=== PATIENT | female | born 1960 | race African-American/Black ===

== ENCOUNTER 2019-06-20 15:08 | Inpatient (IN) | payer BC ==
[~2019-06-20] VITALS: Ht 170.2 cm; Wt 56.0 kg
--- NOTE | 2019-06-20 15:55 | NUR ---
PHYSICIAN CODING SPECIALIST: PT ARRIVED VIA EMS. [facility]
[2019-06-20] MEDS ORDERED: ATOR40TA78 PO (16:09)
[2019-06-20] MEDS ORDERED: LEVE500T8 PO (16:09)
[2019-06-20] MEDS ORDERED: LISI-167 PO (16:09)
--- NOTE | 2019-06-20 16:14 | NUR ---
PT AMBULATORY TO & FROM [facility]/ SLOW GAIT. VOIDED SPECIMEN PROVIDED. Addendum: 06/20/19 at 1625 by GRIFFIN URINE SPECIMEN PALE YELLOW, CLOUDY. WILL NOTIFY ERP.
--- NOTE | 2019-06-20 16:22 | NUR ---
PT DENIED SEIZURE AND CVA HX. REPORTS BRAIN BLEED - WAS TX'D AT [facility]. DR RAPP WILL REQUEST RECORDS.
[2019-06-20] MEDS ORDERED: LORazepam 2 MG/ML, 1ML ONE (16:23)
--- NOTE | 2019-06-20 16:26 | NUR ---
O2 SAT UPPER 70'S, LOW 80'S. O2 2LNC APPLIED; TITRATED UP TO 4LNC
[2019-06-20] MEDS ORDERED: LORazepam 2 MG/ML, 1ML IVPush ONE (16:30)
--- NOTE | 2019-06-20 16:31 | NUR ---
MEDS ADMIN PER SEP. PT RESTING COMFORTABLY ON GURNEY READING ON PHONE. XRAY AT BEDSIDE.
[2019-06-20 17:04] LABS: BASOPHILS # (AUTO) 0.02 x10^3/uL (0-0.1); BASOPHILS % (AUTO) 0 % (0-1); EOSINOPHILS # (AUTO) 0.05 x10^3/uL (0-0.4); EOSINOPHILS % (AUTO) 1 % (1-7); LYMPHOCYTES % (AUTO) 27 % (22-44); MD NO; MEAN CORPUSCULAR HEMOGLOBIN 29.5 pg (27.0-34.8); MEAN CORPUSCULAR HGB CONC 32.3 g/dL (32.4-35.8); MEAN CORPUSCULAR VOLUME 91.4 fL (80-100); MEAN PLATELET VOLUME 8.8 fL (7.4-10.4); MONOCYTES # (AUTO) 0.14 x10^3/uL (0.2-0.8); MONOCYTES % (AUTO) 4 % (2-9); NEUTROPHILS # (AUTO) 2.71 x10^3/uL (1.8-6.8); NEUTROPHILS % (AUTO) 68 % (42-75); PLATELET COUNT 251 x10^3/uL (130-400); RED BLOOD COUNT 3.79 x10^6/uL (3.82-5.3); RED CELL DISTRIBUTION WIDTH 13.7 % (9.6-15.2)
--- NOTE | 2019-06-20 17:06 | NUR ---
PT RESTING COMFORTABLY ON GURNEY. ALLI.
[2019-06-20 17:13] LABS: INTERNATIONAL NORMALIZED RATIO 1.01 (0.93-1.1); PROTHROMBIN TIME 10.6 Seconds (9.6-11.5)
[2019-06-20 17:14] LABS: ALBUMIN 3.7 g/dL (3.4-5.0); ANION GAP 4 mmol/L (5-15); CALCIUM 8.6 mg/dL (8.5-10.1); CHLORIDE 101 mmol/L (98-107); CREATININE 0.67 mg/dL (0.55-1.02)
[2019-06-20 17:18] LABS: TROPONIN I < 0.015 ng/mL (0.000-0.045)
--- NOTE | 2019-06-20 17:18 | NUR ---
TASK RN: TO CT SCAN
[2019-06-20] MEDS ORDERED: OMNIPAQUE 350 MG/ML, 100ML BOTTLE ONE (17:43)
--- NOTE | 2019-06-20 18:02 | NUR ---
MD AT BEDSIDE TO UPDATE PT ON POC.
[2019-06-20] MEDS ORDERED: LORazepam 2 MG/ML, 1ML IVPush PRN (18:30)
[2019-06-20] MEDS ORDERED: LEVETIRACETAM 1,000 MG in SODIUM CHLORIDE 0.9% 100 ML IV ONE ×2 (18:30→21:30)
--- NOTE | 2019-06-20 18:32 | NUR ---
PT NOT RESPONDING TO MD AND FLUTTERING HER EYES DURING ASSESSMENT. MD STATES PT IS HAVING A SEIZURE. N/O FOR KEPPRA AND PRN ATIVAN IF SEIZURE CONTINUES FOR LONGER THAN 5 MINUTES. PT RESPONSIVE, BUT THEN RIGHT BACK TO SLEEP, 3 MINUTES LATER. KEPPRA REQUESTED FROM PHARMACY.
--- NOTE | 2019-06-20 18:46 | NUR ---
MEDS ADMIN PER SEP. PT AROUSABLE, THEN BACK TO SLEEP. ALLI.
--- NOTE | 2019-06-20 19:47 | NUR ---
PT TAKEN TO MRI
--- NOTE | 2019-06-20 20:37 | NUR ---
PT BACK FROM MRI. PT RESPONSIVE TO QUESTIONS.
--- NOTE | 2019-06-20 20:53 | NUR ---
ALL RESULTS ARE BACK AT THIS TIME. CHART UP FOR RECEK.
--- NOTE | 2019-06-20 21:11 | NUR ---
PT FATHER CALLED AND INFORMED THIS NURSE OF PT HISTORY. PT ADMITTED TO [facility] IN JANUARY FOR BRAIN ANEURYSM. NOTIFIED.
--- NOTE | 2019-06-20 21:26 | NUR ---
ORDERED ALMA FROM PHARMACY.
--- NOTE | 2019-06-20 21:33 | NUR ---
PT SLEEPING ON JANENESTEPHANI. ALLI.
[2019-06-20] MEDS: SODIUM CHLORIDE 0.9% 1,000 ML IV SCH (22:17)
[2019-06-20] MEDS ORDERED: HYDROcodone/APAP 5/325 TABLET PO PRN (22:30)
[2019-06-20] MEDS ORDERED: ACETAMINOPHEN 325 MG TABLET PO PRN (22:30)
[2019-06-20] MEDS ORDERED: hydrALAzine 20 MG/ML, 1ML IVPush PRN (22:30)
[2019-06-20] MEDS ORDERED: BISACODYL 10 MG SUPP PR PRN (22:30)
[2019-06-20] MEDS ORDERED: ONDANSETRON ODT 4 MG PO PRN (22:30)
[2019-06-20] MEDS ORDERED: PROMETHAZINE 25 MG/ML, 1ML IM PRN (22:30)
[2019-06-20] MEDS: ATORVASTATIN 40 MG TABLET PO SCH (22:30)
[2019-06-20] MEDS ORDERED: DOCUSATE 100 MG CAPSULE PO PRN (22:30)
[2019-06-20] MEDS ORDERED: POLYETHYLENE GLYCOL 17 GM PACKET PO PRN (22:30)
[2019-06-20] MEDS ORDERED: morphine SULFATE 10 MG/ML, 1ML IVPush PRN (22:30)
[2019-06-20] MEDS ORDERED: ONDANSETRON 2MG/ML, 2ML IVPush PRN (22:30)
[2019-06-20] MEDS ORDERED: HEPARIN 5,000 UNITS/ML, 1ML ONE (23:05)
[2019-06-20] MEDS: HEPARIN 5,000 UNITS/ML, 1ML SQ SCH (23:06)
--- NOTE | 2019-06-20 23:08 | NUR ---
PT HAS NOT BEEN ALERT ENOUGH FOR THE SWALLOW TEST. HS PO MEDS NOT ADMIN.
--- NOTE | 2019-06-20 23:27 | NUR ---
REPORT GIVEN TO MICHELLE ALEJANDRO
[2019-06-20 23:31] LABS: FREE T4 (FREE THYROXINE) 1.26 ng/dL (0.76-1.46)
[2019-06-20 23:37] LABS: HEMOGLOBIN A1C 5.3 % (4.2-6.3)
[2019-06-20 23:54] VITALS: BP 169/100
[2019-06-21 03:33] LABS: MICROSCOPIC NOT IND
[2019-06-21 03:37] LABS: CULTURE INDICATED? NO
[2019-06-21 03:43] LABS: AMPHETAMINE SCREEN, URINE Negative (Negative); BARBITURATE SCREEN, URINE Negative (Negative); BENZODIAZEPINE SCREEN, URINE Negative (Negative); CANNABINOID SCREEN, URINE Negative (Negative); COCAINE SCREEN, URINE Negative (Negative); METHADONE SCREEN, URINE Negative (Negative); OPIATE SCREEN, URINE Negative (Negative)
[2019-06-21 05:04] LABS: BASOPHILS # (AUTO) 0.01 x10^3/uL (0-0.1); BASOPHILS % (AUTO) 0 % (0-1); EOSINOPHILS % (AUTO) 0 % (1-7); LYMPHOCYTES % (AUTO) 21 % (22-44); MD NO; MEAN CORPUSCULAR HEMOGLOBIN 29.3 pg (27.0-34.8); MEAN CORPUSCULAR HGB CONC 32.8 g/dL (32.4-35.8); MEAN CORPUSCULAR VOLUME 89.3 fL (80-100); MEAN PLATELET VOLUME 8.7 fL (7.4-10.4); MONOCYTES # (AUTO) 0.09 x10^3/uL (0.2-0.8); MONOCYTES % (AUTO) 2 % (2-9); NEUTROPHILS # (AUTO) 2.95 x10^3/uL (1.8-6.8); NEUTROPHILS % (AUTO) 77 % (42-75); PLATELET COUNT 246 x10^3/uL (130-400); RED BLOOD COUNT 4.19 x10^6/uL (3.82-5.3); RED CELL DISTRIBUTION WIDTH 13.4 % (9.6-15.2)
[2019-06-21 05:16] LABS: ALBUMIN 3.6 g/dL (3.4-5.0); ANION GAP 7 mmol/L (5-15); CALCIUM 8.9 mg/dL (8.5-10.1); CHLORIDE 100 mmol/L (98-107)
[2019-06-21 05:20] LABS: ALANINE AMINOTRANSFERASE 24 U/L (12-78); ALKALINE PHOSPHATASE 102 U/L (45-117); BILIRUBIN,TOTAL 0.6 mg/dL (0.2-1.0); CHOL/HDL RATIO 3.1; CHOLESTEROL, TOTAL 183 mg/dL (140-239); HDL CHOL % 32 % (28-40); HDL CHOLESTEROL (DIRECT) 59 mg/dL (40-60); LDL CHOLESTEROL,CALCULATED 114 mg/dL (54-169); LDL/HDL RATIO 1.9 (0.5-3.0); TOTAL PROTEIN 7.4 g/dL (6.4-8.2); TRIGLYCERIDES 49 mg/dL (50-200); VLDL CHOLESTEROL 10 mg/dL (0-25)
[2019-06-21] MEDS ORDERED: ASPIRIN 81 MG TABLET EC PO SCH (06:00)
[2019-06-21] MEDS ORDERED: LEVETIRACETAM 1,000 MG in SODIUM CHLORIDE 0.9% 100 ML IV SCH (09:00)
[2019-06-21] MEDS: LISINOPRIL 10 MG TABLET PO SCH (09:32)
[2019-06-21] MEDS: HEPARIN 5,000 UNITS/ML, 1ML SQ SCH ×3 (09:34→21:10)
[2019-06-21] MEDS: SODIUM CHLORIDE 0.9% 1,000 ML IV SCH (09:35)
[2019-06-21] MEDS: VALPROIC ACID 250 MG CAPSULE PO SCH ×2 (09:54→21:11)
[2019-06-21 14:38] VITALS: BP 109/71
[2019-06-21 19:15] VITALS: BP 129/75
[2019-06-21] MEDS: ATORVASTATIN 40 MG TABLET PO SCH (21:10)
[2019-06-22 01:35] VITALS: BP 126/71
[2019-06-22 04:38] LABS: BASOPHILS # (AUTO) 0.02 x10^3/uL (0-0.1); BASOPHILS % (AUTO) 1 % (0-1); EOSINOPHILS # (AUTO) 0.05 x10^3/uL (0-0.4); EOSINOPHILS % (AUTO) 1 % (1-7); LYMPHOCYTES # (AUTO) 1.43 x10^3/uL (1-3.4); LYMPHOCYTES % (AUTO) 40 % (22-44); MD NO; MEAN CORPUSCULAR HEMOGLOBIN 29.7 pg (27.0-34.8); MEAN CORPUSCULAR HGB CONC 32.8 g/dL (32.4-35.8); MEAN CORPUSCULAR VOLUME 90.4 fL (80-100); MEAN PLATELET VOLUME 8.9 fL (7.4-10.4); MONOCYTES # (AUTO) 0.21 x10^3/uL (0.2-0.8); MONOCYTES % (AUTO) 6 % (2-9); NEUTROPHILS % (AUTO) 53 % (42-75); PLATELET COUNT 221 x10^3/uL (130-400); RED BLOOD COUNT 3.98 x10^6/uL (3.82-5.3); RED CELL DISTRIBUTION WIDTH 13.4 % (9.6-15.2)
[2019-06-22 04:48] LABS: ALBUMIN 3.2 g/dL (3.4-5.0); CALCIUM 9.1 mg/dL (8.5-10.1); CHLORIDE 105 mmol/L (98-107)
[2019-06-22 04:55] LABS: ALANINE AMINOTRANSFERASE 23 U/L (12-78); ALKALINE PHOSPHATASE 86 U/L (45-117); ANION GAP 4 mmol/L (5-15); BILIRUBIN,TOTAL 0.5 mg/dL (0.2-1.0); CREATININE 0.85 mg/dL (0.55-1.02); TOTAL PROTEIN 6.6 g/dL (6.4-8.2)
[2019-06-22 07:14] VITALS: BP 138/81
[2019-06-22] MEDS: VALPROIC ACID 250 MG CAPSULE PO SCH (09:00)
[2019-06-22] MEDS: LISINOPRIL 10 MG TABLET PO SCH (09:01)
[2019-06-22] MEDS ORDERED: VALP250C PO (13:42)
[2019-06-22 14:08] VITALS: BP 115/68
== END 2019-06-22 17:00 | disposition home or self-care (01) | DRG 123 ==
LOC: ED 22:07 → EDIP 22:29 → CCU 23:38 → 4WST 06-21 14:16 → DCLOUNGE 06-22 16:46
PROVIDERS: ADMIT Internal Medicine; ATTEND Family Medicine
DX: H53.47 Heteronymous bilateral field defects (principal); I50.30 Unspecified diastolic (congestive) heart failure; R47.01 Aphasia; G40.209 Localization-related (focal) (partial) symptomatic epilepsy and epileptic syndromes with complex partial seizures, not intractable, without status epilepticus; E04.2 Nontoxic multinodular goiter; E78.00 Pure hypercholesterolemia, unspecified; E78.5 Hyperlipidemia, unspecified; F17.200 Nicotine dependence, unspecified, uncomplicated; H53.40 Unspecified visual field defects; I11.0 Hypertensive heart disease with heart failure; Z79.899 Other long term (current) drug therapy; Z91.14 Patient's other noncompliance with medication regimen; Z86.73 Personal history of transient ischemic attack (TIA), and cerebral infarction without residual deficits
CPT/HCPCS: 36415; 70450; 70496; 70498; 70551; 71045; 76536; 80048; 80053; 80061; 80307; 81003; 82040; 83036; 83605; 83735; 84100; 84439; 84443; 84484; 85025; 85610; 85730; 87081; 93005; 93306; 95816; 96374; 96375; G0378; J1644; J1953; Q9967; 92523-GN; J2060; J7030

== ENCOUNTER 2019-10-03 20:04 | Emergency (ER) | payer BC ==
[~2019-10-03] VITALS: Ht 170.2 cm; Wt 66.4 kg
[~2019-10-03 20:04] MED LIST: ATOR40TA78 PO; LABETALOL 5MG/ML, 20ML IVPush STA; LEVE500T8 PO; LISI-167 PO; VALP250C PO
[2019-10-03] MEDS ORDERED: SODIUM CHLORIDE FLUSH 10ML SYR IVF ONE (20:30)
[2019-10-03] MEDS ORDERED: PLEASE ENTER HEIGHT AND WEIGHT MC SCH (20:30)
[2019-10-03] MEDS ORDERED: LABETALOL 5MG/ML, 20ML ONE (20:38)
--- NOTE | 2019-10-03 20:45 | NUR ---
PT EDUCATED ON MEDICATION COMPLIANCE. PT STATES SHE ABSOLUTELY WILL NOT TAKE ANY PRESCRIBED MEDICATIONS FOR HER BLOOD PRESSURE. WHEN ASKED WHY SHE STATES IT'S AGAINST HER BELIEF'S AND WHATEVER HAPPENS IS MEANT TO HAPPEN. PROVIDER NOTIFIED.
[2019-10-03 20:58] LABS: ALBUMIN 3.5 g/dL (3.4-5.0); ANION GAP 6 mmol/L (5-15); CALCIUM 8.6 mg/dL (8.5-10.1); CHLORIDE 101 mmol/L (98-107)
[2019-10-03 20:59] LABS: BASOPHILS # (AUTO) 0.03 x10^3/uL (0-0.1); BASOPHILS % (AUTO) 1 % (0-1); EOSINOPHILS # (AUTO) 0.14 x10^3/uL (0-0.4); EOSINOPHILS % (AUTO) 4 % (1-7); LYMPHOCYTES # (AUTO) 1.22 x10^3/uL (1-3.4); LYMPHOCYTES % (AUTO) 35 % (22-44); MD NO; MEAN CORPUSCULAR HEMOGLOBIN 28.9 pg (27.0-34.8); MEAN CORPUSCULAR HGB CONC 32.4 g/dL (32.4-35.8); MEAN PLATELET VOLUME 8.9 fL (7.4-10.4); MONOCYTES # (AUTO) 0.13 x10^3/uL (0.2-0.8); MONOCYTES % (AUTO) 4 % (2-9); NEUTROPHILS # (AUTO) 2.03 x10^3/uL (1.8-6.8); NEUTROPHILS % (AUTO) 57 % (42-75); PLATELET COUNT 273 x10^3/uL (130-400); RED BLOOD COUNT 4.09 x10^6/uL (3.82-5.3); RED CELL DISTRIBUTION WIDTH 13.6 % (9.6-15.2)
[2019-10-03 21:01] LABS: ALANINE AMINOTRANSFERASE 28 U/L (12-78); ALKALINE PHOSPHATASE 114 U/L (45-117); BILIRUBIN,TOTAL 0.5 mg/dL (0.2-1.0); CREATININE 0.68 mg/dL (0.55-1.02); TOTAL PROTEIN 7.7 g/dL (6.4-8.2); TROPONIN I < 0.015 ng/mL (0.000-0.045)
[2019-10-03 21:56] VITALS: BP 144/91
== END 2019-10-03 21:58 | disposition home or self-care (01) ==
LOC: ED 21:00
DX: I10 Essential (primary) hypertension (principal)
CPT/HCPCS: 36415; 71045; 80053; 83735; 83880; 84484; 85025; 93005; 96374